=== PATIENT | male | born 1940 | race Caucasian/White ===

== ENCOUNTER 2018-03-22 06:21 | Day surgery (SDC) | payer MEDICARE, BC ==
[~2018-03-22] VITALS: Ht 172.7 cm; Wt 70.6 kg
[2018-03-22] VITALS (7 sets, daily range): BP systolic 109–148; BP diastolic 59–77; PULSE 59–73; TEMP 97.3–97.8
[~2018-03-22 06:21] MED LIST: ASPIRIN E.C. 8181 MG; CEPHALEXIN500 M1 PO; CO Q-10 100 MG-1 SGL; FISH OIL500 MG PO; GLUCOSAMINE & C1 CA1; LASIX 40MG TABL40 MG PO; LIPITOR20 MG PO; NATURE'S BLEND500 M1 PO; PRINIVIL2.5 MG PO; RITE AID KRILL500 MG; TOPROL XL 25MG25 MG PO; [UNRECOGNIZED DRUG - OTHER]
[2018-03-22 07:35] LABS: CALCIUM 8.9 mg/dL (8.4-10.2); CREATININE, serum 1.06 mg/dL (0.66-1.25); POTASSIUM 4.4 mmol/L (3.4-5.0)
[2018-03-22] MEDS ORDERED: CALCIUM CARBON650 M2 PO (08:11)
[2018-03-22] MEDS ORDERED: COZAAR 50MG50 MG/TAB PO (08:12)
[2018-03-22] MEDS ORDERED: TOPROL XL100 MG PO (08:13)
[2018-03-22] MEDS ORDERED: PREDNISONE 5MG5 MG PO (08:13)
[2018-03-22] MEDS ORDERED: VITAMIN D 400400 IU PO (08:14)
[2018-03-22] MEDS ORDERED: NORCO 325 MG-51 TAB PO (09:18)
== END 2018-03-22 11:00 | disposition home or self-care (01) ==
LOC: SDCO 06:21
PROVIDERS: Nurse Anesthetist, Certified Registered
DX: T85.79XA Infection and inflammatory reaction due to other internal prosthetic devices, implants and grafts, initial encounter (principal); I11.0 Hypertensive heart disease with heart failure; I50.22 Chronic systolic (congestive) heart failure; I42.0 Dilated cardiomyopathy; L40.0 Psoriasis vulgaris; Z95.1 Presence of aortocoronary bypass graft; Z95.810 Presence of automatic (implantable) cardiac defibrillator; E78.00 Pure hypercholesterolemia, unspecified; Z79.899 Other long term (current) drug therapy; Z79.82 Long term (current) use of aspirin; M81.8 Other osteoporosis without current pathological fracture; T38.0X5S Adverse effect of glucocorticoids and synthetic analogues, sequela
CPT/HCPCS: J0690; J1100; J1720; J1885; J2250; J2405; J2704; J2765; J3010; J7120

== ENCOUNTER 2021-01-04 13:13 | Emergency (ER) | payer MEDICARE, BC ==
[~2021-01-04] VITALS: Ht 172.7 cm; Wt 56.5 kg
[~2021-01-04 13:13] MED LIST changes: -ASPIRIN E.C. 8181 MG; +ASPIRIN E.C. 8181 MG PO; +CALCIUM CARBON650 M2 PO; +COZAAR 50MG50 MG/TAB PO; +NORCO 325 MG-51 TAB PO; +PREDNISONE 5MG5 MG PO; +TOPROL XL100 MG PO; +VITAMIN D 400400 IU PO
[2021-01-04 13:34] VITALS: TEMP 97.6
[2021-01-04 14:12] LABS: BASO % 0.4 % (0.0-2.0); EOS # 0.2 (0.0-0.7); EOS % 2.2 % (0-4.0); GRAN # 4.3 (1.4-6.5); GRAN % 64.9 % (42.2-75.2); HEMATOCRIT 37.8 % (42.0-52.0); HEMOGLOBIN 13.2 g/dl (13.5-18.0); LYMPH # 1.2 (1.2-3.4); LYMPH % 18.5 % (20.0-51.0); MEAN CELL VOLUME 96 fl (80.0-100.0); MEAN CORPUSCULAR HEMOGLOBIN 33 pg (27.0-31.0); MEAN CORPUSCULAR HGB CONC 35 g/dl (33.0-37.0); MONO # 0.9 (0.1-0.6); MONO % 13.7 % (1.7-9.3); PLATELET COUNT 162 K/mm3 (130-400); RED BLOOD COUNT 3.95 M/mm3 (4.20-5.60); REDCELL DISTRIBUTION WIDTH-CV 12.4 % (11.5-14.5)
[2021-01-04 14:22] LABS: CREATININE, serum 1.02 (0.66-1.25); POTASSIUM 4.7 mmol/L (3.4-5.0)
[2021-01-04 14:23] LABS: COLLECTION METHOD CLEAN CATCH
[2021-01-04 14:28] LABS: MUCOUS Present /lpf; PH 5 (5-8); SQUAMOUS EPITHELIAL 0-2 /hpf; URINE APPEARANCE Hazy; URINE BACTERIA None Seen /hpf; URINE BILIRUBIN Negative (NEGATIVE); URINE BLOOD Negative (NEGATIVE); URINE COLOR Yellow; URINE GLUCOSE Negative (NEGATIVE); URINE KETONE Negative (NEGATIVE); URINE LEUKOCYTE ESTERASE Negative (NEGATIVE); URINE NITRATE Negative (NEGATIVE); URINE PROTEIN(semi-quant) 1+ (NEGATIVE); URINE RBC 0-2 /hpf; URINE UROBILINOGEN Negative (NEGATIVE)
[2021-01-04 15:15] VITALS: BP 118/70; PULSE 71
[2021-06-22] MEDS ORDERED: LASIX 20MG TABL20 MG PO (23:42)
[2021-06-22] MEDS ORDERED: MEGACE20 MG (23:43)
[2021-06-25] MEDS ORDERED: ALDACTONE 25MG25 M1 PO (10:07)
[2021-06-25] MEDS ORDERED: TOPROL XL 25MG25 MG PO (10:08)
== END 2021-01-04 15:15 | disposition home or self-care (01) ==
LOC: COL.ER 13:13
PROVIDERS: Emergency Medicine
DX: R33.9 Retention of urine, unspecified (principal); E87.1 Hypo-osmolality and hyponatremia; E78.5 Hyperlipidemia, unspecified; I25.10 Atherosclerotic heart disease of native coronary artery without angina pectoris; Z95.1 Presence of aortocoronary bypass graft; Z79.1 Long term (current) use of non-steroidal anti-inflammatories (NSAID); Z79.899 Other long term (current) drug therapy

== ENCOUNTER 2021-05-23 09:46 | Day surgery (SDC) | payer MEDICARE, BC ==
[~2021-05-23] VITALS: Ht 172.7 cm; Wt 50.6 kg
[2021-05-23] MEDS ORDERED: OTEZLA PO (11:02)
[2021-05-23] MEDS ORDERED: JARDIANCE10 PO (11:03)
[2021-05-23] MEDS ORDERED: FLOMAX 0.40.4 MG/CAP PO (11:03)
[2021-05-23] MEDS ORDERED: DIOVAN 80MG80 MG PO (11:04)
[2021-05-23 11:37] VITALS: BP 121/81; PULSE 99; TEMP 96.7
[2021-05-23 13:45] VITALS: BP 102/67; PULSE 92; TEMP 96.7
[2021-05-23 14:00] VITALS: BP 111/75; PULSE 91
--- NOTE | 2021-05-23 14:25 | NUR ---
Pt returned via cart to recliner in [facility] 7. A&O. Son present in room. VSS-see flowsheet. IV removed and pressure dressing applied. Discharge teaching completed, verbalized understanding. Pt dressed and taken via wheelchair to private vehicle for dc home with son to drive.
[2021-05-23 15:08] VITALS: BP 102/67; PULSE 92
[2021-06-22] MEDS ORDERED: LASIX 20MG TABL20 MG PO (23:42)
[2021-06-22] MEDS ORDERED: MEGACE20 MG (23:43)
[2021-06-25] MEDS ORDERED: ALDACTONE 25MG25 M1 PO (10:07)
[2021-06-25] MEDS ORDERED: TOPROL XL 25MG25 MG PO (10:08)
== END 2021-05-23 14:25 | disposition home or self-care (01) ==
LOC: SDCO 09:46
DX: K29.30 Chronic superficial gastritis without bleeding (principal); D12.2 Benign neoplasm of ascending colon; R19.7 Diarrhea, unspecified; R63.4 Abnormal weight loss; K57.30 Diverticulosis of large intestine without perforation or abscess without bleeding; R13.10 Dysphagia, unspecified; I11.0 Hypertensive heart disease with heart failure; I50.9 Heart failure, unspecified; I26.99 Other pulmonary embolism without acute cor pulmonale; I42.9 Cardiomyopathy, unspecified; I25.10 Atherosclerotic heart disease of native coronary artery without angina pectoris; E78.5 Hyperlipidemia, unspecified; J30.9 Allergic rhinitis, unspecified; R63.0 Anorexia; F17.210 Nicotine dependence, cigarettes, uncomplicated; Z79.899 Other long term (current) drug therapy; Z79.82 Long term (current) use of aspirin; Z20.822 Contact with and (suspected) exposure to COVID-19; Z83.3 Family history of diabetes mellitus; Z80.9 Family history of malignant neoplasm, unspecified
CPT/HCPCS: J2704; J7030

== ENCOUNTER 2021-06-30 15:38 | Outpatient (RCR) | payer MEDICARE, BC ==
[~2021-06-30 15:38] MED LIST changes: +ALDACTONE 25MG25 M1 PO; +DIOVAN 80MG80 MG PO; +FLOMAX 0.40.4 MG/CAP PO; +JARDIANCE10 PO; +LASIX 20MG TABL20 MG PO; +MEGACE20 MG; +OTEZLA PO
== END 2021-08-08 | disposition home or self-care (01) ==
LOC: WSST
DX: R13.10 Dysphagia, unspecified (principal)